=== PATIENT | male | born 1975 | race Two or more races ===

== ENCOUNTER 2018-09-29 12:42 | Emergency (ER) | payer MEDICAID ==
--- NOTE | 2018-09-29 13:42 | EDM.PDOC ---
ED HPI GENERAL MEDICAL PROBLEM - General Chief Complaint: ENT Problem Stated Complaint: TOOTH ACHE Time Seen by Provider: 09/29/18 13:41 Source of Information: Reports: Patient History Limitations: Reports: No Limitations - History of Present Illness INITIAL COMMENTS - FREE TEXT/NARRATIVE: pt arrives with dental pain in the rt lower most post molars. He has not seen a dentist recently. Onset: Other ( This pain got alot worse during the nite. ) Duration: Hour(s): Location: Reports: Face Associated Symptoms: Reports: Other (pt is having severe dental pain. ) - Related Data Allergies Allergy/AdvReac Type Severity Reaction Status Date / Time morphine Allergy Severe Joint Pain Verified 09/29/18 13:27 Home Meds: Home Meds NK [No Known Home Meds] 11/13/13 [History] Past Medical History - Past Surgical History HEENT Surgical History: Reports: Tonsillectomy Social & Family History - Tobacco Use Smoking Status *Q: Current Every Day Smoker Years of Tobacco use: 20 Packs/Tins Daily: 0.7 ED ROS ENT - Review of Systems Review Of Systems: See Below Constitutional: Reports: Chills HEENT: Reports: Dental Pain Respiratory: Reports: No Symptoms Cardiovascular: Reports: No Symptoms Endocrine: Reports: No Symptoms GI/Abdominal: Reports: No Symptoms : Reports: No Symptoms ED EXAM, ENT - Physical Exam Exam: See Below Text/Narrative:: pt has severe pain in the rt lower dental area. He states he was having chills last nite. He has not seen a dentist recently. Exam Limited By: No Limitations General Appearance: Alert, Anxious, Moderate Distress Ears: Normal TMs Nose: Normal Inspection Mouth/Throat: Dental Pain, Other (pt has no obvious abcess. Both lower molars on the rt are very uncomfortable. ) Head: Atraumatic Neck: Lymphadenopathy (R), Lymphadenopathy (L) Respiratory/Chest: No Respiratory Distress Cardiovascular: Regular Rate, Rhythm Course - Vital Signs Last Recorded V/S: Last Vital Signs Temp 34.9 C L 09/29/18 13:31 Pulse 67 09/29/18 13:31 Resp 16 09/29/18 13:31 BP 147/104 H 09/29/18 13:31 Pulse Ox 98 09/29/18 13:31 - Orders/Labs/Meds Orders: Active Orders 24 hr Category Date Time Status Acetaminophen/oxyCODONE [Percocet 325-5 MG] Med 09/29/18 13:44 Once 1 tab PO ONETIME ONE - Re-Assessments/Exams Free Text/Narrative Re-Assessment/Exam: 09/29/18 13:48 pt was given percocet 5/325 with some relief. Departure - Departure Time of Disposition: 13:42 Disposition: Home, Self-Care 01 Condition: Fair Clinical Impression: Tooth infection - Discharge Information Referrals: PCP,None [Primary Care Provider] - Forms: ED Department Discharge Care Plan Goals: appt at dental clinc for mondayOct 02. Amoxicillin 500mg qid. torodol 10mg qid for dental pain. referal was given to the dental clinic. - My Orders Last 24 Hours: My Active Orders 09/29/18 13:44 Acetaminophen/oxyCODONE [Percocet 325-5 MG] 1 tab PO ONETIME ONE - Assessment/Plan Last 24 Hours: My Active Orders 09/29/18 13:44 Acetaminophen/oxyCODONE [Percocet 325-5 MG] 1 tab PO ONETIME ONE
[2018-09-29] MEDS ORDERED: Acetaminophen/oxyCODONE 325-5 MG Tab PO ONE (13:44)
== END 2018-09-29 14:05 | disposition home or self-care (01) ==
LOC: JP.ED 12:42
DX: K04.7 Periapical abscess without sinus (principal); F17.210 Nicotine dependence, cigarettes, uncomplicated; Z88.5 Allergy status to narcotic agent
CPT/HCPCS: 99283

== ENCOUNTER 2018-09-30 09:40 | Emergency (ER) | payer MEDICAID ==
[2018-09-30] MEDS ORDERED: cefTRIAXone 1 GM in Sodium Chloride 0.9% 50 ML IV ONE (10:53)
[2018-09-30] MEDS ORDERED: Sodium Chloride 0.9% 10 ML Syringe FLUSH PRN (10:53)
--- NOTE | 2018-09-30 11:00 | EDM.PDOC ---
ED HPI GENERAL MEDICAL PROBLEM - General Chief Complaint: ENT Problem Stated Complaint: TOOTH INFECTION, SWOLLEN ON RIGHT SIDE Time Seen by Provider: 09/30/18 10:54 Source of Information: Reports: Patient History Limitations: Reports: No Limitations - History of Present Illness INITIAL COMMENTS - FREE TEXT/NARRATIVE: pt developed acute swelling in the rt facial area. He was placed on amoxicillin yesterday and he did start it rt away. he now feels like the infection has spread. He did pull out part of the filling last nite. i Onset: Other ( swelling is much worse today. ) Duration: Hour(s): Location: Reports: Face Associated Symptoms: Reports: No Other Symptoms Treatments [employer] DISPENSING: Reports: NSAIDS - Related Data Allergies Allergy/AdvReac Type Severity Reaction Status Date / Time morphine Allergy Severe Joint Pain Verified 09/29/18 13:27 Home Meds: Home Meds Amoxicillin 500 mg PO QID 09/30/18 [History] Ketorolac [Toradol] 1 tab PO Q6H PRN 09/30/18 [History] Past Medical History - Past Surgical History HEENT Surgical History: Reports: Tonsillectomy Social & Family History - Family History Family Medical History: Noncontributory ED ROS ENT - Review of Systems Review Of Systems: See Below Constitutional: Reports: Chills HEENT: Reports: Dental Pain, Other (pt has a marked increase in the rt facial pain) Respiratory: Reports: No Symptoms Cardiovascular: Reports: No Symptoms Endocrine: Reports: No Symptoms GI/Abdominal: Reports: No Symptoms : Reports: No Symptoms Musculoskeletal: Reports: No Symptoms Skin: Reports: No Symptoms ED EXAM, ENT - Physical Exam Exam: See Below Text/Narrative:: pt arrived with marked swelling in the rt facial area--lower jaw. Exam Limited By: No Limitations General Appearance: Alert, Moderate Distress Ears: Normal TMs Nose: Normal Inspection Mouth/Throat: Other (pt has pulled out part of the filling from his rt lower molar. He does have a increase in the facial swelling today. The gum line is also much more swollen. ) Head: Atraumatic Neck: Lymphadenopathy (R) Respiratory/Chest: No Respiratory Distress Cardiovascular: Regular Rate, Rhythm Course - Vital Signs Last Recorded V/S: Last Vital Signs Temp 34.9 C L 09/30/18 10:42 Pulse 93 09/30/18 10:42 Resp 16 09/30/18 10:42 BP 157/106 H 09/30/18 10:42 Pulse Ox 93 L 09/30/18 10:42 - Orders/Labs/Meds Orders: Active Orders 24 hr Category Date Time Status Sodium Chloride 0.9% [Saline Flush] Med 09/30/18 10:53 Ordered 10 ml FLUSH ASDIRECTED PRN cefTRIAXone [Rocephin] 1 gm Med 09/30/18 10:53 Ordered Sodium Chloride 0.9% [Normal Saline] 50 ml IV ONETIME Saline Lock Insert [OM.PC] Routine Oth 09/30/18 10:53 Ordered - Re-Assessments/Exams Free Text/Narrative Re-Assessment/Exam: 09/30/18 10:58 saline lock was placed and he was given 1 Gram of rocephen. He will return tomorrow for another gram. He has a dental referal for Monday. Departure - Departure Time of Disposition: 11:00 Disposition: Home, Self-Care 01 Condition: Fair Clinical Impression: Dental infection - Discharge Information Referrals: PCP,None [Primary Care Provider] - Care Plan Goals: continue amoxicillin , rtc tomorrow for 1 gm of rocephen. keep dental referal for Monday. , percocet 5/325 q6h prn for pain #4 - My Orders Last 24 Hours: My Active Orders 09/30/18 10:53 Sodium Chloride 0.9% [Saline Flush] 10 ml FLUSH ASDIRECTED PRN cefTRIAXone [Rocephin] 1 gm Sodium Chloride 0.9% [Normal Saline] 50 ml IV ONETIME Saline Lock Insert [OM.PC] Routine - Assessment/Plan Last 24 Hours: My Active Orders 09/30/18 10:53 Sodium Chloride 0.9% [Saline Flush] 10 ml FLUSH ASDIRECTED PRN cefTRIAXone [Rocephin] 1 gm Sodium Chloride 0.9% [Normal Saline] 50 ml IV ONETIME Saline Lock Insert [OM.PC] Routine
== END 2018-09-30 11:51 | disposition home or self-care (01) ==
LOC: JP.ED 09:40
DX: K04.7 Periapical abscess without sinus (principal); Z98.890 Other specified postprocedural states; Z88.5 Allergy status to narcotic agent
CPT/HCPCS: 96365; 99283; J0696; J7050

== ENCOUNTER 2022-08-10 02:22 | Emergency (ER) | payer MEDICAID ==
[2022-08-10] MEDS ORDERED: Ketorolac 30 MG/ML SDV IM ONE (02:41)
== END 2022-08-10 03:04 | disposition home or self-care (01) ==
LOC: JP.ED 02:22
DX: K04.7 Periapical abscess without sinus (principal); L03.211 Cellulitis of face; K02.62 Dental caries on smooth surface penetrating into dentin; F17.210 Nicotine dependence, cigarettes, uncomplicated; Z88.6 Allergy status to analgesic agent
CPT/HCPCS: 96372; 99282; J1885

== ENCOUNTER 2022-08-10 19:19 | Emergency (ER) | payer MEDICAID ==
[2022-08-10] MEDS ORDERED: cefTRIAXone 2 GM in Sodium Chloride 0.9% 50 ML IV ONE (19:47)
== END 2022-08-10 20:35 | disposition home or self-care (01) ==
LOC: JP.ED 19:19
DX: K04.7 Periapical abscess without sinus (principal); L03.213 Periorbital cellulitis; Z88.5 Allergy status to narcotic agent
CPT/HCPCS: 96365; 99283; J0696

== ENCOUNTER 2022-11-29 17:01 | Emergency (ER) | payer MEDICAID ==
[2022-11-29] MEDS ORDERED: Lidocaine 2% 5 ML SDV INJECT ONE (17:09)
[2022-11-29] MEDS ORDERED: Bacitracin Oint 1 GM U/D Packet TOP ONE (17:09)
[2022-11-29] MEDS ORDERED: Lidocaine 1% 5 ML VIAL INJECT ONE (17:24)
== END 2022-11-29 18:20 | disposition home or self-care (01) ==
LOC: JP.ED 17:01
DX: S61.012A Laceration without foreign body of left thumb without damage to nail, initial encounter (principal); Z88.5 Allergy status to narcotic agent; W26.8XXA Contact with other sharp object(s), not elsewhere classified, initial encounter
CPT/HCPCS: 12002; 99282